=== PATIENT | male | born 1960 | race Caucasian/White ===

== ENCOUNTER 2018-02-07 14:19 | Outpatient (CLI) | payer BC ==
[~2018-02-07] VITALS: Ht 172.7 cm; Wt 107.0 kg
[2018-02-07] MEDS ORDERED: INDO50CA PO (15:32)
[2018-02-07] MEDS ORDERED: ONDA4TAB8 SL (15:32)
[2018-02-07] MEDS ORDERED: CIPR-225 PO (15:32)
[2018-02-07] MEDS ORDERED: TAMS0.4C2 PO (15:32)
[2018-02-07] MEDS ORDERED: TRAM50TA2 PO (15:32)
[2018-02-08] MEDS ORDERED: HYDR-3870 PO (12:14)
[2018-02-08] MEDS ORDERED: NITR-65 PO (12:14)
[2018-02-08] MEDS ORDERED: TAMS0.4C98 PO (12:14)
== END 2018-02-07 15:37 ==
LOC: PREOP 14:19
PROVIDERS: ATTEND Urology
DX: Z01.818 Encounter for other preprocedural examination (principal); N20.1 Calculus of ureter

== ENCOUNTER → 2018-02-07 | Outpatient (CLI) | payer BC ==
[~2018-02-07] MED LIST: CIPR-225 PO; HYDR-3870 PO; INDO50CA PO; NITR-65 PO; ONDA4TAB8 SL; PHEN-640 PO; TAMS0.4C2 PO; TAMS0.4C98 PO; TRAM50TA2 PO
--- NOTE | 2018-02-07 16:03 | Diagnostic Imaging Report ---
EXAMINATION: KUB at 12:58 p.m. INDICATION: Nephrolithiasis. FINDINGS: There are no prior studies available for comparison. There is a small 3.9 mm calcification just inferior to the left transverse process of L1. This may be within the left renal pelvis or proximal left ureter. If further study is desired, then CT will be recommended. There is also an 8 mm calcification overlying the midportion of the right kidney. This is probably intrarenal. This finding could also be further evaluated by CT. There is no sign of a pathologic calcification within the pelvis. There is no mass or organomegaly noted. There is degenerative disc and bony disease throughout the lumbar spine with relative sparing of the L3-L4 disc space. L5 also seems to be a transitional vertebra. This is a developmental variant. IMPRESSION: 1. There is a small calcification overlying the expected path of the proximal left ureter or within the left renal pelvis. There also appears to be a larger calcification overlying the midportion of the right kidney. If further evaluation of these findings is desired, then CT will be recommended. 2. There is no acute abnormality noted otherwise. Dictated by: Dictated on workstation # [id number]
== END ==
LOC: RAD 12:29
PROVIDERS: ATTEND Urology
DX: N20.0 Calculus of kidney (principal)
CPT/HCPCS: 74018

== ENCOUNTER 2018-02-08 07:57 | Day surgery (SDC) | payer BC ==
[~2018-02-08] VITALS: Ht 172.7 cm; Wt 107.0 kg
[~2018-02-08 07:57] MED LIST changes: -HYDR-3870 PO; -NITR-65 PO; -PHEN-640 PO; -TAMS0.4C98 PO
[2018-02-08] MEDS ORDERED: LACTATED RINGERS 1,000 ML IV PRN (08:08)
[2018-02-08] MEDS ORDERED: cefTRIAXone INJECTION 1,000 MG in NS (IVPB) 100 ML IV ONE (08:15)
--- NOTE | 2018-02-08 08:26 | Progress Note-Pre Operative ---
Pre-Operative Progress Note H&P Reviewed The H&P was reviewed, patient examined and no changes noted. Date Seen by Provider: February 08, 2018 Time Seen by Provider: 08: Date H&P Reviewed: February 08, 2018 Time H&P Reviewed: 08: Pre-Operative Diagnosis: LT PROXIMAL URETERAL STONE LIBBY CONN MD February 08, 2018 8:26 am
[2018-02-08 08:40] VITALS: BP 129/99
--- NOTE | 2018-02-08 08:44 | Diagnostic Imaging Report ---
EXAMINATION: Supine abdomen at 8:38 AM. INDICATION: Nephrolithiasis. FINDINGS: The prior exam of 02/07/2018 noted a small calcification just inferior to the left transverse process of L1. There was also a larger calcification overlying the right kidney. Both of those findings are again evident and essentially no different. No new abnormality has developed otherwise. IMPRESSION: The calcification overlying the expected path of the proximal left ureter and the calcification overlying the right kidney seen previously are again evident and no different. No new abnormality has developed otherwise. Dictated by: Dictated on workstation # [id number]
[2018-02-08] MEDS ORDERED: LIDOCAINE PF 2% 5 ML (XYLOCAINE) VIAL ONE (10:07)
[2018-02-08] MEDS ORDERED: KETOROLAC 30 MG/ML VIAL ONE (10:07)
[2018-02-08] MEDS ORDERED: proPOfol 200 MG/20 ML (DIPRIVAN) VIAL IV ONE (10:07)
[2018-02-08] MEDS ORDERED: SEVOFLURANE (ULTANE) 15 ML INHAL SOLN ONE ×2 (10:07→11:07)
[2018-02-08] MEDS ORDERED: FUROSEMIDE 40 MG/4 ML INJ (LASIX) ONE (10:07)
[2018-02-08] MEDS ORDERED: MIDAZOLAM 2 MG/2 ML (VERSED) VIAL ONE (10:10)
[2018-02-08] MEDS ORDERED: fentaNYL INJECTION 100 MCG/2 ML AMP ONE (10:10)
--- NOTE | 2018-02-08 10:36 | Progress Note-Post Operative ---
Post-Operative Progess Note Surgeon (s)/Tours Hostess (s) Surgeon LIBBY CONN MD Tours Hostess: N/A Pre-Operative Diagnosis LT PROXIMAL URETERAL STONE Post-Operative Diagnosis SAME Procedure & Operative Findings Date of Procedure 02/08/18 Procedure Performed/Findings LT ESWL Anesthesia Type GENERAL Estimated Blood Loss Estimated blood loss (mL): N/A Specimens/Packing Specimens Removed N/A Packing: N/A LIBBY CONN MD February 08, 2018 10:36 am
--- NOTE | 2018-02-08 10:38 | Discharge Inst-Urology ---
Discharge Inst-Urology Discharge Medications New, Converted, or Re-newed RX: RX on Chart Patient Instructions/Follow Up Plan Please make appointment to been seen in office Wednesday 02/21, KUB prior to it KUB on way home Post ESWL instructions Increase oral fluids for 48 hours and then as needed. Diet and Activity as tolerated. If questions or concerns contact your physician Or seek help at emergency department. LIBBY CONN MD February 08, 2018 10:38 am
[2018-02-08 11:50] VITALS: BP 122/94
[2018-02-08] MEDS ORDERED: NITR-65 PO (12:14)
[2018-02-08] MEDS ORDERED: TAMS0.4C98 PO (12:14)
[2018-02-08] MEDS ORDERED: HYDR-3870 PO (12:14)
[2018-02-08 12:20] VITALS: BP 115/89
[2018-02-08 12:50] VITALS: BP 121/91
[2018-02-08 12:55] VITALS: BP 121/91
--- NOTE | 2018-02-08 13:06 | Diagnostic Imaging Report ---
Indication: Nephrolithiasis. Comparison made with prior examination of 02/08/2018. Two views were obtained. Findings: The lung bases are clear. Bowel gas pattern is nonspecific. No definite residual calcifications are appreciated overlying either kidney although the exam is limited due to the amount of fecal material and bowel gas. Impression: Nonspecific bowel gas pattern. No definite renal stones, however again exam is limited as described. Dictated by: Dictated on workstation # [id number]
--- NOTE | 2018-02-08 15:39 | Anesthesia-General Post-Op ---
General Patient Condition Mental Status/LOC: Same as Preop Cardiovascular: Satisfactory Nausea/Vomiting: Absent Respiratory: Satisfactory Pain: Controlled Complications: Absent Post Op Complications Complications None Follow Up Care/Instructions Patient Instructions None needed. Anesthesia/Patient Condition Patient Condition Patient was seen after surgery and he was doing well, no complaints, stable vital signs, no apparent adverse anesthesia problems. PAM HOROWITZ DO February 08, 2018 15:39
--- NOTE | 2018-02-08 22:05 | OPERATIVE REPORT ---
DATE OF SERVICE: 02/08/2018 PREOPERATIVE DIAGNOSIS: Left proximal ureteral stone. POSTOPERATIVE DIAGNOSIS: Left proximal ureteral stone. OPERATION PERFORMED: Left ESWL. SURGEON: Elio Conn MD ANESTHESIA: General. COMPLICATIONS: None. DESCRIPTION OF PROCEDURE: Under satisfactory general anesthesia, the patient in supine position on the ESWL table, the left proximal ureteral stone was localized. Shocks were delivered at kV of 5. Total of 2500 shocks seemed to have fragmented the stone nicely, which we could not visualize any more. The patient received 40 mg of Lasix and 30 mg of Toradol IV at the end of the procedure. He tolerated the procedure and anesthesia well, and was sent to recovery room in stable condition. Job ID: [id number] DocumentID: [id number] Dictated Date: 02/08/2018 10:53:52 Fiscal Technician Date: 02/08/2018 22:04:43 Dictated By: ELIO CONN MD
== END 2018-02-08 12:55 | disposition home or self-care (01) ==
LOC: SDC 07:57
PROVIDERS: ATTEND Urology
DX: N20.1 Calculus of ureter (principal)
CPT/HCPCS: 74018; 87081

== ENCOUNTER 2018-02-14 17:10 | Emergency (ER) | payer BC ==
[~2018-02-14] VITALS: Ht 177.8 cm; Wt 107.0 kg
[~2018-02-14 17:10] MED LIST changes: +HYDR-3870 PO; +NITR-65 PO; +TAMS0.4C98 PO
[2018-02-14] MEDS ORDERED: LACTATED RINGERS 1,000 ML IV ONE (18:16)
[2018-02-14] MEDS ORDERED: KETOROLAC 30 MG/ML VIAL IVP STA (18:16)
--- NOTE | 2018-02-14 18:18 | ED Abdominal Pain ---
General Stated Complaint: KIDNEY STONES, VOMITING Source of Information: Patient History of Present Illness Date Seen by Provider: February 14, 2018 Time Seen by Provider: 18:18 Initial Comments PT ARRIVES VIA POV FROM HOME C/O LEFT FLANK PAIN, RADIATES TO LLQ--ALMOST GONE NOW STATES HE HAD LITHOTRIPSY LAST Wednesday02/08/[address] CONN--NO PRIOR HISTORY OF KIDNEY STONES --SEEN AT [facility] 01/31 AND DX WITH LEFT KIDNEY STONE. PT STATES HE HAD SOME MILD LEFT FLANK PAIN YESTERDAY, BUT PAIN IS WORSE SINCE THIS AFTERNOON HAD TO LEAVE WORK EARLY TODAY BECAUSE OF PAIN AND NAUSEA--VOMITED X 1 AT 1500 TODAY NO PROBLEMS URINATING, NO GROSS HEMATURIA, BUT URINE HAS BEEN DARK. STATES HE HAS NOT PASSED ANY FRAGMENTS SINCE LITHOTRIPSY NO FEVER TOOK PAIN PILL--HYDROCODONE-- AT 0900 THIS AM, AND CELEBREX AT 11:45 THIS MORNING, OTHERWISE HAS NOT TAKEN ANYTHING FOR PAIN HAS RX'S FOR ZOFRAN, INDOCIN, TRAMADOL, TAMSULOSIN, CIPRO, NITROFURANTOIN, HYDROCODONE, CELEBREX---HAS NOT TAKEN ANY OTHER MEDICATIONS TODAY OR ANY OTHER DAY. HAS FOLLOW UP APPOINTMENT ON Wednesday CALLED OFFICE TODAY, WHO INSTRUCTED HIM TO COME TO ER PCP: DR. VENCES, [facility] UROLOGIST: DR. CONN Allergies and Home Medications Allergies Coded Allergies: cyclobenzaprine (Verified Allergy, Unknown, DIARRHEA, 02/07/18) Home Medications Ciprofloxacin HCl 500 Mg Tablet, 500 MG PO BID, (Reported) take for 7 days started 02/01/18 Hydrocodone/Acetaminophen 1 Each Tablet, 1-2 EACH PO Q4H PRN for PAIN Prescribed by: MARY LIND on 02/08/18 121 Indomethacin 50 Mg Capsule, 50 MG PO BID, (Reported) take for 10 days, started 02/01/18 Nitrofurantoin Monohyd/M-Cryst 100 Mg Capsule, 1 TAB PO BID Prescribed by: MARY LIND on 02/08/18 121 Ondansetron 4 Mg Tab.rapdis, 4 MG SL Q8H PRN for NAUSEA/VOMITING-1ST LINE, ( Reported) Tamsulosin HCl 0.4 Mg Cap.er.24h, 0.4 MG PO DAILY, (Reported) Tamsulosin HCl 0.4 Mg Cap, 0.4 MG PO DAILY Prescribed by: MARY LIND on 02/08/18 1214 Tramadol HCl 50 Mg Tablet, 100 MG PO Q6H PRN for PAIN-MILD TO MODERATE, ( Reported) Patient Home Medication List Home Medication List Reviewed: Yes Review of Systems Constitutional: no symptoms reported Respiratory: No Symptoms Reported Cardiovascular: No Symptoms Reported Gastrointestinal: See HPI, Abdominal Pain (LEFT FLANK PAIN RADIATING TO LLQ), Nausea, Vomiting Genitourinary: See HPI; Denies Burning, Denies Frequency; Flank Pain; Denies Hematuria, Denies Incontinence, Denies Pain, Denies Urgency Musculoskeletal: see HPI, back pain Skin: no symptoms reported Psychiatric/Neurological: No Symptoms Reported Endocrine: No Symptoms Reported Hematologic/Lymphatic: No Symptoms Reported Past Cdytylq-Yhoiuw-Chhyqd Hx Patient Social History Alcohol Use: Denies Use Recreational Drug Use: No Smoking Status: Never a Smoker Recent Foreign Travel: No Contact w/Someone Who Travel: No Recent Hopitalizations: No Seasonal Allergies Seasonal Allergies: No Past Medical History Surgeries: Yes (LITHOTRIPSY 02/08/18; RIGHT TOTALK KNEE REPLACEMENT; LEFT ELBOW FX/ORIF; 6 CYSTS REMOVED FROM SCALP; COLONOSCOPY/POLYPECTOMY) Joint Replacement, Orthopedic, Rectal Respiratory: No Cardiac: No Neurological: No Genitourinary: Yes Kidney Stones Gastrointestinal: Yes Polyps Musculoskeletal: Yes (L1 COMPRESSION FRACTURE) Arthritis, Chronic Back Pain, Fractures, Gout Endocrine: No HEENT: No (EDENTULOUS) Cancer: No Psychosocial: No Integumentary: Yes (CYSTS ON SCALP) Blood Disorders: No Physical Exam Vital Signs Vital Signs - First Documented 02/14/18 18:21 Temp 98.9 Pulse 73 Resp 20 B/P (MAP) 149/108 (122) Pulse Ox 97 O2 Delivery Room Air Capillary Refill : General Appearance: WD/WN, no apparent distress, other (WALKS WITH CANE, SITTING STILL. DOES NOT APPEAR TO BE IN ANY DISCOMFORT AT THIS TIME. 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, no motor/sensory deficits, alert, normal mood/affect, oriented x 3 Skin: normal color, warm/dry; No rash Progress/Results/Core Measures Results/Orders Lab Results Laboratory Tests Test 02/14/18 18:30 02/14/18 19:49 Range/Units White Blood Count 12.4 H 4.3-11.0 10^3/uL Red Blood Count 4.61 4.35-5.85 10^6/uL Hemoglobin 14.0 13.3-17.7 G/DL Hematocrit 41 40-54 % Mean Corpuscular Volume 89 80-99 FL Mean Corpuscular Hemoglobin 30 25-34 PG Mean Corpuscular Hemoglobin Concent 34 32-36 G/DL Red Cell Distribution Width 13.3 10.0-14.5 % Platelet Count 259 130-400 10^3/uL Mean Platelet Volume 9.8 7.4-10.4 FL Neutrophils (%) (Auto) 76 H 42-75 % Lymphocytes (%) (Auto) 14 12-44 % Monocytes (%) (Auto) 8 0-12 % Eosinophils (%) (Auto) 2 0-10 % Basophils (%) (Auto) 0 0-10 % Neutrophils # (Auto) 9.4 H 1.8-7.8 X 10^3 Lymphocytes # (Auto) 1.7 1.0-4.0 X 10^3 Monocytes # (Auto) 1.0 0.0-1.0 X 10^3 Eosinophils # (Auto) 0.2 0.0-0.3 10^3/uL Basophils # (Auto) 0.1 0.0-0.1 10^3/uL Sodium Level 142 135-145 MMOL/L Potassium Level 4.0 3.6-5.0 MMOL/L Chloride Level 107 98-107 MMOL/L Carbon Dioxide Level 27 21-32 MMOL/L Anion Gap 8 5-14 MMOL/L Blood Urea Nitrogen 11 7-18 MG/DL Creatinine 0.95 0.60-1.30 MG/DL Estimat Glomerular Filtration Rate > 60 BUN/Creatinine Ratio 12 Glucose Level 101 70-105 MG/DL Calcium Level 9.6 8.5-10.1 MG/DL Total Bilirubin 0.6 0.1-1.0 MG/DL Aspartate Amino Transf (AST/SGOT) 14 5-34 U/L Alanine Aminotransferase (ALT/SGPT) 15 0-55 U/L Alkaline Phosphatase 64 40-136 U/L Total Protein 8.0 6.4-8.2 GM/DL Albumin 4.3 3.2-4.5 GM/DL Amylase Level 74 25-125 U/L Lipase 31 8-78 U/L Urine Color YELLOW Urine Clarity CLEAR Urine pH 6 5-9 Urine Specific Dunlap 1.015 L 1.016-1.022 Urine Protein 2+ H NEGATIVE Urine Glucose (UA) NEGATIVE NEGATIVE Urine Ketones NEGATIVE NEGATIVE Urine Nitrite NEGATIVE NEGATIVE Urine Bilirubin NEGATIVE NEGATIVE Urine Urobilinogen NORMAL NORMAL MG/DL Urine Leukocyte Esterase 3+ H NEGATIVE Urine RBC (Auto) 5+ H NEGATIVE Urine RBC >100 H /HPF Urine WBC 10-25 H /HPF Urine Crystals NONE /LPF Urine Bacteria TRACE /HPF Urine Casts NONE /LPF Urine Mucus NEGATIVE /LPF Urine Culture Indicated YES My Orders Orders - PEBBLES RIVERA DO Ct Abd/Pelvis Wo(Kidney Stone) (02/14/18 18:16) Amylase (02/14/18 18:16) Cbc With Automated Diff (02/14/18 18:16) Comprehensive Metabolic Panel (02/14/18 18:16) Lipase (02/14/18 18:16) Ua Culture If Indicated (02/14/18 18:16) Acute Abd Series (02/14/18 18:16) Saline Lock/Iv-Start (02/14/18 18:16) Saline Lock/Iv-Start (02/14/18 18:16) Lactated Ringers (Lr 1000 Ml Iv Solution (02/14/18 18:16) Ondansetron Injection (Zofran Injectio (02/14/18 18:30) Ketorolac Injection (Toradol Injection) (02/14/18 18:16) Urine Culture (02/14/18 19:49) Medications Given in ED Current Medications Medications Dose Ordered Sig/Aroldo Route Start Time Stop Time Status Last Admin Dose Admin Lactated Ringer's 1,000 ml @ 0 mls/hr Q0M ONCE IV 02/14/18 18:16 02/14/18 18:19 DC 02/14/18 18:36 0 MLS/HR Ondansetron HCl 4 mg ONCE ONCE IVP 5/14/18 18:30 02/14/18 18:31 DC 02/14/18 18:36 4 MG Vital Signs/I&O 02/14/18 02/14/18 18:21 20:26 Temp 98.9 97.9 Pulse 73 70 Resp 20 20 B/P (MAP) 149/108 (122) 132/92 Pulse Ox 97 99 O2 Delivery Room Air Room Air 02/15/18 00:00 Intake Total 1000 ml Balance 1000 ml Progress Progress Note : Progress Note NO NAUSEA DURING ER STAY PAIN-FREE AT DISMISSAL Diagnostic Imaging Comments ACUTE ABDOMEN XRAYS--NO ACUTE PROCESS CT ABDOMEN/PELVIS--5 MM STONE AT LEFT UVJ WITH MILD TO MODERATE LEFT HYDRONEPHROSIS, BILATERAL INTRARENAL STONES, BLADDER WALL THICKENING VS UNDERDISTENTION PER RADIOLOGIST REPORTS @ 1928 Reviewed: Reviewed by Me Departure Communication (Admissions) 1931--SPOKE WITH DR. CONN. HE ADVISES TO HAVE PT KEEP APPOINTMENT ON Wednesday, AND CALL OFFICE IF SYMPTOMS WORSEN. Impression Primary Impression: Left ureteral stone Disposition: HOME, SELF-CARE Condition: Improved Departure-Patient Inst. Referrals: SELF,AIMEE MENDOZA (PCP/Family) Primary Care Physician LIBBY CONN MD Patient Instructions: Kidney Stones (DC) Add. Discharge Instructions: LOTS OF CLEAR LIQUIDS TAKE YOUR FLOMAX ( TAMSULOSIN ) EVERY DAY TAKE YOUR ANTIBIOTIC MACROBID ( NITROFURANTOIN ) TWICE A DAY EVERY DAY TAKE YOUR ZOFRAN ( ONDANSETRON ) EVERY 4 HOURS NEEDED FOR NAUSEA AND VOMITING TAKE YOUR HYDROCODONE 1-2 EVERY 4 HOURS NEEDED FOR PAIN YOU MAY ALSO TAKE TRAMADOL 1-2 EVERY 4 HOURS NEEDED FOR PAIN KEEP YOUR APPOINTMENT WITH DR. CONN ON WEDNESDAY, OR CALL HIS OFFICE IF SYMPTOMS WORSEN Work/School Note: Work Release Form Date Seen in the Emergency Department: February 14, 2018 Return to Work: February 15, 2018 Restrictions: No Restrictions PEBBLES RIVERA DO February 14, 2018 18:18
[2018-02-14] MEDS ORDERED: ONDANSETRON 4 MG/2 ML (SDV) Z0FRAN IVP ONE (18:30)
[2018-02-14 18:36] LABS: BASOPHILS # (AUTO) 0.1 10^3/uL (0.0-0.1); BASOPHILS % (AUTO) 0 % (0-10); EOSINOPHILS # (AUTO) 0.2 10^3/uL (0.0-0.3); EOSINOPHILS % (AUTO) 2 % (0-10); HEMATOCRIT 41 % (40-54); LYMPHOCYTES # (AUTO) 1.7 X 10^3 (1.0-4.0); LYMPHOCYTES % (AUTO) 14 % (12-44); MEAN CORPUSCULAR HEMOGLOBIN 30 PG (25-34); MEAN CORPUSCULAR HGB CONC 34 G/DL (32-36); MEAN CORPUSCULAR VOLUME 89 FL (80-99); MEAN PLATELET VOLUME 9.8 FL (7.4-10.4); MONOCYTES % (AUTO) 8 % (0-12); NEUTROPHILS # (AUTO) 9.4 X 10^3 (1.8-7.8); NEUTROPHILS % (AUTO) 76 % (42-75); PLATELET COUNT 259 10^3/uL (130-400); RED BLOOD COUNT 4.61 10^6/uL (4.35-5.85); RED CELL DISTRIBUTION WIDTH 13.3 % (10.0-14.5); WHITE BLOOD COUNT 12.4 10^3/uL (4.3-11.0)
[2018-02-14 18:58] LABS: ALANINE AMINOTRANSFERASE 15 U/L (0-55); ALBUMIN 4.3 GM/DL (3.2-4.5); ALKALINE PHOSPHATASE 64 U/L (40-136); AMYLASE 74 U/L (25-125); BILIRUBIN,TOTAL 0.6 MG/DL (0.1-1.0); BUN/CREATININE RATIO 12; CALCIUM 9.6 MG/DL (8.5-10.1); CARBON DIOXIDE 27 MMOL/L (21-32); CHLORIDE 107 MMOL/L (98-107); CREATININE SERUM 0.95 MG/DL (0.60-1.30); GFR ESTIMATED > 60; GLUCOSE 101 MG/DL (70-105); LIPASE 31 U/L (8-78); SODIUM 142 MMOL/L (135-145)
--- NOTE | 2018-02-14 19:05 | Diagnostic Imaging Report ---
INDICATION: Left flank pain. PA chest, supine and upright abdominal images are obtained. FINDINGS: Lungs are clear. There is no intraperitoneal free air. Bowel gas pattern is normal. IMPRESSION: No acute abnormality is seen in the abdomen. Dictated by: Dictated on workstation # [id number]
--- NOTE | 2018-02-14 19:23 | Diagnostic Imaging Report ---
PROCEDURE: CT urinary tract, rule out kidney stone. TECHNIQUE: Multiple contiguous axial images were obtained through the abdomen and pelvis without the use of intravenous contrast. INDICATION: Left flank pain. COMPARISON: Abdominal radiographs from 02/08/2018. FINDINGS: Lung bases are clear. The liver, gallbladder, pancreas, spleen, right adrenal gland, and appendix are negative. 0.5 cm renal stone in the left ureterovesicular junction. There is vekp-oc-orcvkqzf left hydronephrosis. 0.3 cm nonobstructing calyceal tip renal stone in the left kidney. 0.7 cm nonobstructing calyceal tip renal stone in the right kidney. No right hydronephrosis. Enlarged prostate. Bladder wall thickening versus incomplete distention. Benign-appearing fat-containing mass in the left adrenal gland measuring up to 1.2 cm. No free intraperitoneal air or fluid. No lymphadenopathy. No evidence of bowel obstruction. Advanced spondylotic changes in the visualized spine including chronic bilateral pars defects of L5. No acute osseous findings. IMPRESSION: 1. 0.5 cm obstructing renal stone in the left ureterovesicular junction resulting in tldj-lw-cnjlyfjs left hydronephrosis. 2. Additional nonobstructing calyceal tip renal stones in both kidneys. 3. Bladder wall thickening versus incomplete distention. Dictated by: Dictated on workstation # [id number]
[2018-02-14 19:56] LABS: BILIRUBIN,URINE NEGATIVE (NEGATIVE); CLARITY,URINE CLEAR; COLOR,URINE YELLOW; GLUCOSE, URINE (UA) NEGATIVE (NEGATIVE); KETONES,URINE NEGATIVE (NEGATIVE); LEUKOCYTE ESTERASE ,URINE 3+ (NEGATIVE); NITRITE,URINE NEGATIVE (NEGATIVE); PH,URINE 6 (5-9); PROTEIN,URINE 2+ (NEGATIVE); UROBILINOGEN,URINE NORMAL (NORMAL)
[2018-02-14 20:04] LABS: BACTERIA,URINE TRACE /HPF; RBC,URINE >100 /HPF
[2018-02-14 20:26] VITALS: BP 132/92
== END 2018-02-14 20:24 | disposition home or self-care (01) ==
LOC: EDUNIT# 17:10 → ER 17:11
DX: N20.1 Calculus of ureter (principal); Z88.8 Allergy status to other drugs, medicaments and biological substances; Z96.651 Presence of right artificial knee joint; Z86.010 Personal history of colon polyps; Z87.442 Personal history of urinary calculi
CPT/HCPCS: 36415; 74022; 74176; 80053; 81000; 82150; 83690; 85025; 87088; 96361; 96374; 96375

== ENCOUNTER → 2018-02-21 | Outpatient (CLI) | payer BC ==
[~2018-02-21] MED LIST changes: +PHEN-640 PO
--- NOTE | 2018-02-21 13:34 | Diagnostic Imaging Report ---
INDICATION: Left proximal ureteral stone, status post ESWL. TIME OF EXAM: 1:21 p.m. COMPARISON: Correlation is made with prior study from 02/14/2018. FINDINGS: No definite radiopaque calculi are identified overlying the renal shadows apart from perhaps a vague calculus overlying the lower pole of the right kidney. The left kidney is unremarkable. No calculi along the expected course of the ureters is seen. Previously noted UVJ calculus on the left is not appreciated. Bowel gas pattern is unremarkable. IMPRESSION: Vague calcific density overlying the lower pole of the right kidney. No other significant abnormality is seen. Dictated by: Dictated on workstation # [id number]
== END ==
LOC: RAD 12:45
PROVIDERS: ATTEND Urology
DX: Z87.442 Personal history of urinary calculi (principal); Z98.890 Other specified postprocedural states
CPT/HCPCS: 74018

== ENCOUNTER 2018-02-22 06:11 | Outpatient (CLI) | payer BC ==
[~2018-02-22] VITALS: Ht 177.8 cm; Wt 107.0 kg
[~2018-02-22 06:11] MED LIST changes: -PHEN-640 PO
== END 2018-02-22 14:10 ==
LOC: PREOP 06:11
PROVIDERS: ATTEND Urology
DX: Z01.818 Encounter for other preprocedural examination (principal); N20.1 Calculus of ureter

== ENCOUNTER 2018-02-25 09:31 | Day surgery (SDC) | payer BC ==
[~2018-02-25] VITALS: Ht 177.8 cm; Wt 107.0 kg
[2018-02-25 09:30] VITALS: BP 126/94
[2018-02-25] MEDS ORDERED: cefTRIAXone INJECTION 1,000 MG in NS (IVPB) 50 ML IV ONE (09:45)
[2018-02-25] MEDS: LACTATED RINGERS 1,000 ML IV PRN ×2 (10:20→13:10)
[2018-02-25] MEDS ORDERED: fentaNYL INJECTION 100 MCG/2 ML AMP ONE (11:34)
[2018-02-25] MEDS ORDERED: proPOfol 200 MG/20 ML (DIPRIVAN) VIAL IV ONE ×2 (11:34→13:05)
[2018-02-25] MEDS ORDERED: LACTATED RINGERS 0 ML IV ONE (11:34)
[2018-02-25] MEDS ORDERED: SEVOFLURANE (ULTANE) 15 ML INHAL SOLN ONE (11:34)
[2018-02-25] MEDS ORDERED: LIDOCAINE PF 2% 5 ML (XYLOCAINE) VIAL ONE (11:34)
[2018-02-25] MEDS ORDERED: MIDAZOLAM 2 MG/2 ML (VERSED) VIAL ONE (11:34)
--- NOTE | 2018-02-25 12:04 | Progress Note-Pre Operative ---
Pre-Operative Progress Note H&P Reviewed The H&P was reviewed, patient examined and no changes noted. Date Seen by Provider: February 25, 2018 Time Seen by Provider: 12:04 Date H&P Reviewed: February 25, 2018 Time H&P Reviewed: 12:04 Pre-Operative Diagnosis: LT DISTAL URETERAL STONE LIBBY CONN MD February 25, 2018 12:04 pm
--- NOTE | 2018-02-25 12:32 | Progress Note-Post Operative ---
Post-Operative Progess Note Surgeon (s)/Typesetting Supervisor (s) Surgeon LIBBY CONN MD Typesetting Supervisor: N/A Pre-Operative Diagnosis LT DISTAL URETERAL STONE Post-Operative Diagnosis SAME Procedure & Operative Findings Date of Procedure 02/25/18 Procedure Performed/Findings CYSTOSCOPY, LT URETEROSCOPY, AND LT RETROGRADE UROGRAM Anesthesia Type GENERAL Estimated Blood Loss Estimated blood loss (mL): N/A Specimens/Packing Specimens Removed N/A Packing: N/A LIBBY CONN MD February 25, 2018 12:32 pm
[2018-02-25] MEDS ORDERED: DEXAMETHASONE 10 MG/ML (DECADRON) 1 ML VIAL ONE (12:33)
[2018-02-25] MEDS ORDERED: ONDANSETRON 4 MG/2 ML (SDV) Z0FRAN ONE (12:33)
--- NOTE | 2018-02-25 12:34 | Discharge Inst-Urology ---
Discharge Inst-Urology Discharge Medications New, Converted, or Re-newed RX: RX on Chart Patient Instructions/Follow Up Plan Please make appointment to been seen in office in 4 weeks. Increase oral fluids for 48 hours and then as needed. Diet and Activity as tolerated. If questions or concerns contact your physician Or seek help at emergency department. LIBBY CONN MD February 25, 2018 12:34 pm
--- NOTE | 2018-02-25 13:30 | Diagnostic Imaging Report ---
EXAMINATION: Supine abdomen at 10:17 a.m. INDICATION: Left nephrolithiasis. FINDINGS: Two supine views were obtained. The prior exam of 02/21/2018 suggested a vague calcific density overlying the inferior pole of the right kidney. On this exam, the right kidney contour is nearly completely obscured by bowel gas and fecal material. The calcific density in question still seems to be present however. There is no sign of nephrolithiasis on the left and there is no evidence for a calculus along the expected paths of the ureters. The overall appearance of the abdomen has not changed significantly otherwise. IMPRESSION: 1. The calcific density overlying the right kidney seen previously is still present and does not seem to have changed significantly. 2. No new abnormality has developed otherwise. Dictated by: Dictated on workstation # [id number]
--- NOTE | 2018-02-25 14:09 | Anesthesia-General Post-Op ---
General Patient Condition Mental Status/LOC: Same as Preop Cardiovascular: Satisfactory Nausea/Vomiting: Absent Respiratory: Satisfactory Pain: Controlled Complications: Absent Post Op Complications Complications None Follow Up Care/Instructions Patient Instructions None needed. Anesthesia/Patient Condition Patient Condition Patient is doing well, no complaints, stable vital signs, no apparent adverse anesthesia problems. No complications reported per nursing. D/C home per [facility] Criteria: No DANA OAKLEY CRNA February 25, 2018 14:09
[2018-02-25 14:30] VITALS: BP 143/99
[2018-02-25 15:00] VITALS: BP 134/102
[2018-02-25] MEDS ORDERED: PHEN-640 PO (15:19)
[2018-02-25] MEDS ORDERED: CIPR-225 PO (15:19)
[2018-02-25 15:35] VITALS: BP 138/98
[2018-02-25 15:45] VITALS: BP 138/98
--- NOTE | 2018-02-25 17:48 | Diagnostic Imaging Report ---
INDICATION: Fluoroscopy. EXAMINATION: Left ureteral stent insertion for Dr. Willson. 42 seconds of fluoroscopy time was utilized. Three spot films of the pelvis were obtained. FINDINGS: There is opacification of the distal left ureter. There is no defect within the opacified ureter. IMPRESSION: Fluoroscopic assistance was provided for Dr. Willson. Dictated by: Dictated on workstation # [id number]
--- NOTE | 2018-02-25 20:01 | OPERATIVE REPORT ---
DATE OF SERVICE: 02/25/2018 PREOPERATIVE DIAGNOSIS: Left distal ureteral stone. POSTOPERATIVE DIAGNOSIS: Left distal ureteral stone "past." OPERATION PERFORMED: Left ureteroscopy and left retrograde urogram. SURGEON: Elio Conn MD ANESTHESIA: General. COMPLICATIONS: None. DESCRIPTION OF PROCEDURE: Under satisfactory general anesthesia, the patient in lithotomy position, genitalia were prepped and draped in the usual sterile fashion. Cystoscope was introduced under vision. The anterior urethra was normal. The prostate revealed trilobar enlargement with bladder neck obstruction. Bladder was inspected. There were trabeculations. Ureteral orifices are normal in shape, size and configuration with clear efflux, equal on both sides. There was no foreign body in the bladder or trabeculations. No stones. No bladder tumor. There was no abnormality in the left ureteral orifice or intramural portion. Using the four oblique lens, I easily dilated the left ureteral orifice and intramural portion up the proximal ureter to accommodate a 6.9 Dominican semirigid ureteroscope. I examined the whole distal ureter. There were no stones. I backed out. The ureteroscope injected contrast. There was no filling defect. There was no dilatation of the ureter and complete emptying of the ureter on removing the ureteroscope. I presume that the patient has passed a stone and did not notice it. The patient tolerated the procedure and anesthesia well, was sent to recovery room in stable condition. Job ID: [id number] DocumentID: [id number] Dictated Date: 02/25/2018 13:28:59 Inpatient Services Rn Date: 02/25/2018 20:00:52 Dictated By: ELIO CONN MD
== END 2018-02-25 15:45 | disposition home or self-care (01) ==
LOC: SDC 09:31
PROVIDERS: ATTEND Urology
DX: N20.1 Calculus of ureter (principal); I10 Essential (primary) hypertension; Z79.899 Other long term (current) drug therapy
CPT/HCPCS: 74018

== ENCOUNTER 2018-03-24 14:50 | Outpatient (RCR) | payer BC ==
[~2018-03-24 14:50] MED LIST changes: -INDO50CA PO; +INDO50CA11 PO
== END 2018-06-22 | disposition home or self-care (01) ==
LOC: LAB 14:50
PROVIDERS: ATTEND Urology
DX: N20.9 Urinary calculus, unspecified (principal)

== ENCOUNTER → 2018-03-24 | Outpatient (CLI) | payer BC ==
[~2018-03-24] MED LIST changes: +PHEN-640 PO
--- NOTE | 2018-03-24 15:58 | Diagnostic Imaging Report ---
INDICATION: Followup of renal calculi. Comparison with 02/25/2018. FINDINGS: There is again noted a calcification overlying the lower pole of the right kidney measuring approximately 5 mm. This has not changed in appearance. Left kidney is normal. No calculi are seen along the path of the ureters. IMPRESSION: Finding consistent with calyceal calculus of right kidney unchanged since previous exam. Dictated by: Dictated on workstation # [id number]
== END ==
LOC: RAD 13:35
PROVIDERS: ATTEND Urology
DX: N20.2 Calculus of kidney with calculus of ureter (principal)
CPT/HCPCS: 74018

== ENCOUNTER → 2019-11-28 | Outpatient (CLI) | payer BC ==
[~2019-11-28] MED LIST changes: -INDO50CA11 PO; +INDO50CA82 PO; -TAMS0.4C98 PO; +TMSL.4C PO; -TRAM50TA2 PO; +TRM50T PO
--- NOTE | 2019-11-28 11:07 | Diagnostic Imaging Report ---
INDICATION: Foot pain. COMPARISON: None available. TECHNIQUE: Three radiographs of the right foot dated November 28, 2019. FINDINGS: No acute fracture or dislocation. Moderate degenerative changes are noted associated with the hindfoot and midfoot with prominent osteophyte formation. Chronic-appearing medial malleolar fracture is also suggested. Calcifications within the plantar fascia. Small posterior calcaneal enthesophyte. IMPRESSION: No acute osseous abnormality with moderate degenerative changes within the midfoot and hindfoot, including the ankle. Calcifications within the plantar fascia. This can relate to sequelae of prior trauma or injection. Alternatively, this could relate to an underlying systemic sclerosis such as a connective tissue disease. Dictated by: Dictated on workstation # [id number]
== END ==
LOC: RAD FS 09:47
PROVIDERS: ATTEND Nurse Practitioner
DX: M19.071 Primary osteoarthritis, right ankle and foot (principal)
CPT/HCPCS: 73630

== ENCOUNTER → 2019-12-01 | Outpatient (CLI) | payer BC ==
--- NOTE | 2019-12-01 16:49 | Diagnostic Imaging Report ---
INDICATION: Recent injury, sprain of the right foot. EXAMINATION: CT of the right lower extremity, 12/01/2019. COMPARISON: Correlation made to radiographs from 11/28/2019. FINDINGS: Calcification once again noted along the plantar fascia similar to recent radiographs. This is likely due to chronic plantar fasciitis, correlate with symptoms. Diffuse chronic other changes throughout the foot are noted with subchondral cystic change and spurring throughout the midfoot. Calcifications are also noted along the course of the peroneus tendon sheaths consistent with a chronic process as well. There are diffuse degenerative findings throughout the metatarsal phalangeal joint spaces. No acute fractures are identified, however, given the diffuse degenerative findings. If pain persists, MRI could evaluate for edema, as clinically indicated. There is fat stranding throughout the soft tissues of the ankle and foot, likely edema. IMPRESSION: 1. 2. Findings along the plantar fascia, as described above. Dictated on workstation # [id number]
== END ==
LOC: RAD FS 12:15
PROVIDERS: ATTEND Nurse Practitioner
DX: S93.621A Sprain of tarsometatarsal ligament of right foot, initial encounter (principal); M19.071 Primary osteoarthritis, right ankle and foot
CPT/HCPCS: 73700

== ENCOUNTER 2021-08-11 09:58 | Emergency (ER) | payer BC ==
[~2021-08-11] VITALS: Ht 177.8 cm; Wt 113.3 kg
--- NOTE | 2021-08-11 10:03 | ED Lower Extremity ---
General Stated Complaint: LT KNEE PAIN History of Present Illness Date Seen by Provider: Aug 11, 2021 Time Seen by Provider: 10:05 Initial Comments 61-year-old male presents with left knee pain. Patient reports that 2 days ago he started having some pain and swelling of the left knee. That he is now having difficulty putting weight on it. He denies any known injury. He does know that he had a severe arthritis. Patient's pain is mainly on the proximal anterior aspect. Patient normally uses 1 cane because of a right knee replacement 2011 but has had to use 2 canes to help get around because of the pain and difficulty with weightbearing. He has some limited range of motion due to pain. Allergies and Home Medications Allergies Coded Allergies: cyclobenzaprine (Verified Allergy, Unknown, DIARRHEA, 02/07/18) Patient Home Medication List Home Medication List Reviewed: Yes Ciprofloxacin HCl (Cipro) 500 Mg Tablet, 500 MG PO BID Prescribed by: STEPHANIE KRAUSE on 02/25/18 1519 Indomethacin (Indomethacin) 50 Mg Capsule, 50 MG PO BID, (Reported) Entered as Reported by: HALEY MONTIEL on 02/07/18 153 Ondansetron (Zofran Odt) 4 Mg Tab.rapdis, 4 MG SL Q8H PRN for NAUSEA/VOMITING- 1ST LINE, (Reported) Entered as Reported by: HALEY MONTIEL on 02/07/18 153 Phenazopyridine HCl (Pyridium) 200 Mg Tablet, 1 TAB PO TID PRN for SPASMS Prescribed by: STEPHANIE KRAUSE on 02/25/18 1519 Tamsulosin HCl (Tamsulosin HCl) 0.4 Mg Cap.er.24h, 0.4 MG PO DAILY, (Reported) Entered as Reported by: HALEY MONTIEL on 02/07/18 153 Tramadol HCl (Tramadol HCl) 50 Mg Tablet, 100 MG PO Q6H PRN for PAIN-MILD TO MODERATE, (Reported) Entered as Reported by: HALEY MONTIEL on 02/07/18 153 Review of Systems Constitutional: no symptoms reported EENTM: no symptoms reported Respiratory: no symptoms reported Cardiovascular: no symptoms reported Gastrointestinal: no symptoms reported Musculoskeletal: see HPI Skin: see HPI Psychiatric/Neurological: No Symptoms Reported Past Gjmeaqt-Vvfpas-Vsuliy Hx Seasonal Allergies Seasonal Allergies: No Past Medical History Surgeries: Yes Joint Replacement, Orthopedic, Rectal Respiratory: No Cardiac: No Hypertension Neurological: No Genitourinary: Yes Kidney Stones Gastrointestinal: Yes Polyps Musculoskeletal: Yes (L1 COMPRESSION FRACTURE) Arthritis, Chronic Back Pain, Fractures, Gout Endocrine: No HEENT: No (EDENTULOUS) Cancer: No Psychosocial: No Integumentary: Yes (CYSTS ON SCALP) Blood Disorders: No Physical Exam Vital Signs Vital Signs - First Documented 08/11/21 10:04 Temp 35.6 Pulse 88 Resp 18 B/P (MAP) 144/77 (99) Pulse Ox 98 O2 Delivery Room Air Capillary Refill : Height, Weight, BMI Height: 5'10.00" Weight: 236lbs. 0.0oz. 107.567829hz; 33.9 BMI Method:Estimated General Appearance: WD/WN, no apparent distress Cardiovascular: normal peripheral pulses, regular rate, rhythm Respiratory: lungs clear, normal breath sounds Knees: left knee pain, left knee soft tissue tenderness, left knee swelling, left knee other (Significant swelling, no ligament laxity noted. No erythema or warmth) Neurologic/Psychiatric: alert, normal mood/affect, oriented x 3 Skin: normal color, warm/dry Progress/Results/Core Measures Results/Orders My Orders Orders - CLAIR SANDERS DO Knee 3 View Left (08/11/21 10:09) Vital Signs/I&O 08/11/21 10:04 Temp 35.6 Pulse 88 Resp 18 B/P (MAP) 144/77 (99) Pulse Ox 98 O2 Delivery Room Air Progress Progress Note : Progress Note Patient with severe osteoarthritis and would likely benefit from a knee replacement. I did arrange an outpatient follow-up with Dr. Sweeney of [facility] orthopedics since patient was not comfortable with the client services specialist in this area. He has an appointment on May 27 at 9 AM which I encouraged him to keep. I will provide him a couple Lortabs to help with the severe pain, I discussed with him that if he needs anything else he will need to follow-up with a primary care provider for further management. Patient stable and discharged home Diagnostic Imaging Diagonstic Imaging: Xray Plain Films/CT/US/NM/MRI: knee Comments KNEE 3 VIEW LEFT EXAM: Left knee radiograph. EXAM DATE: 08/11/2021. COMPARISON: None. HISTORY: Left knee pain and swelling without injury. TECHNIQUE: Three views of the left knee. FINDINGS: There is moderate medial compartment and mild lateral compartment joint space narrowing. There are significant osteophytes seen throughout the right knee. No significant joint effusion. No acute fracture, dislocation, or destructive osseous process is seen. There are calcifications within the meniscus. The soft tissues are unremarkable. IMPRESSION: Degenerative changes of the left knee without acute osseous abnormality. Departure Impression Primary Impression: Osteoarthritis of left knee Qualified Codes: M17.12 - Unilateral primary osteoarthritis, left knee Disposition: 01 HOME, SELF-CARE Condition: Stable Departure-Patient Inst. Referrals: SELF,AIMEE MENDOZA (PCP/Family) Primary Care Physician Patient Instructions: Osteoarthritis (DC) Add. Discharge Instructions: Please keep appointment with Dr. Christopher at [facility] orthopedic clinic in [facility] on May 27 at 9 AM. 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 Kief-wve-prrinln Voltaren cream as directed on package 4% lidocaine with menthol cream, gel or rub as directed on package Scripts Hydrocodone/Acetaminophen (Hydrocodone-Acetamin 5-325 mg) 1 Each Tablet 1 TAB PO Q12H PRN for PAIN-MODERATE (5-7), #10 TAB Prov: CLAIR SANDERS DO 08/11/21 CLAIR SANDERS DO Aug 11, 2021 10:03
--- NOTE | 2021-08-11 10:31 | Diagnostic Imaging Report ---
EXAM: Left knee radiograph. EXAM DATE: 08/11/2021. COMPARISON: None. HISTORY: Left knee pain and swelling without injury. TECHNIQUE: Three views of the left knee. FINDINGS: There is moderate medial compartment and mild lateral compartment joint space narrowing. There are significant osteophytes seen throughout the right knee. No significant joint effusion. No acute fracture, dislocation, or destructive osseous process is seen. There are calcifications within the meniscus. The soft tissues are unremarkable. IMPRESSION: Degenerative changes of the left knee without acute osseous abnormality. Dictated by: Dictated on workstation # [id number]
[2021-08-11] MEDS ORDERED: ACHD5005 PO (11:05)
[2021-08-11 11:23] VITALS: BP 144/77
== END 2021-08-11 11:17 | disposition home or self-care (01) ==
LOC: EDUNIT# 09:58 → ER FS 10:00
DX: M17.12 Unilateral primary osteoarthritis, left knee (principal); I10 Essential (primary) hypertension
CPT/HCPCS: 73562